=== PATIENT | male | born 1945 | race Caucasian/White ===

== ENCOUNTER 2021-03-24 14:06 | Inpatient (IN) | payer OTHER, BC ==
[2021-03-24] MEDS ORDERED: MAG HYDROX/AL HYDROX/SIMETH 30 ML UNIT-DOSE CUP PO ONE (14:31)
[2021-03-24] MEDS ORDERED: ASPIRIN 81 MG CHEWABLE TABLETS PO ONE (14:31)
[2021-03-24] MEDS ORDERED: FAMOTIDINE 20 MG/50 ML IVPB 20 MG/50 ML MG IVPB ONE ×2 (14:31→14:53)
[2021-03-24] MEDS ORDERED: NITROGLYCERIN SUBLINGUAL 1/150 0.4 MG TAB SL ONE (14:51)
[2021-03-24] MEDS ORDERED: ASPIRIN 81 MG CHEWABLE TABLETS ONE (14:52)
[2021-03-24] MEDS ORDERED: NITROGLYCERIN SUBLINGUAL 1/150 0.4 MG TAB ONE (14:53)
[2021-03-24] MEDS ORDERED: MAG HYDROX/AL HYDROX/SIMETH 30 ML UNIT-DOSE CUP ONE (14:55)
[2021-03-24 14:57] LABS: BASO % 0.7 % (0-2.0); EOS % 0.7 % (0-4.5); HEMATOCRIT 47.5 % (35.4-49); HEMOGLOBIN 16.3 GM/dL (11.7-16.9); LYMPH % 12.4 % (8-40); MCH 33.8 pg (25.7-33.7); MCHC 34.2 g/dl (32.0-35.9); MEAN CELL VOLUME 98.9 fl (80-96); MEAN PLT VOLUME 7.1 fl (7.5-11.1); NEUT % 79.2 % (42.8-82.8); PLATELET COUNT 213 10^3/uL (134-434); RDW 13.3 % (11.9-15.9); WHITE BLOOD COUNT 13.9 K/mm3 (4.0-10.0)
[2021-03-24 15:14] LABS: CHLORIDE 104 mmol/L (98-107); SODIUM 140 mmol/L (136-145)
[2021-03-24 15:17] LABS: ALBUMIN 4.1 g/dl (3.4-5.0); ANION GAP 10 MMOL/L (8-16); BLOOD UREA NITROGEN 9.8 mg/dL (7-18); CO2 27 mmol/L (21-32); GLUCOSE,RANDOM 119 mg/dL (74-106)
[2021-03-24 15:20] LABS: CREATININE 0.9 mg/dL (0.55-1.3); SGOT/AST 92 U/L (15-37); SGPT/ALT 56 U/L (13-61)
[2021-03-24 15:21] LABS: BILIRUBIN,TOTAL 2.4 mg/dL (0.2-1)
[2021-03-24 15:22] LABS: TOT PROT 7.1 g/dl (6.4-8.2)
[2021-03-24 15:23] LABS: ALK PHOS 119 U/L (45-117)
[2021-03-24] MEDS ORDERED: SODIUM CHLORIDE 1,000 ML IV SCH (17:15)
[2021-03-24] MEDS ORDERED: CEFTRIAXONE 2 GM-D5W BAG 2 GM/50 ML BAG IVPB ONE (17:26)
[2021-03-24] MEDS ORDERED: CEFTRIAXONE 2 GM/100 ML BAG IVPB ONE (17:35)
[2021-03-24 18:17] LABS: INR 1.14 (0.83-1.09)
[2021-03-24 18:20] LABS: ACTIVATED PTT 33.4 SECONDS (25.2-36.5)
[2021-03-24] MEDS ORDERED: MORPHINE SULFATE 2 MG/ML VIAL IVPUSH PRN (18:54)
[2021-03-24] MEDS ORDERED: LORazepam 1 MG TABLET PO PRN (20:05)
[2021-03-24] MEDS: SODIUM CHLORIDE 1,000 ML IV SCH (23:01)
[2021-03-25] MEDS ORDERED: PIPERACILLIN/TAZOB 3.375 GM 3.375 GM in DEXTROSE 5%-WATER - 50 ML IVPB SCH (02:00)
[2021-03-25] MEDS ORDERED: PIPERACILLIN/TAZOBACTAM 3.375 GM VIAL IVPB ONE (02:06)
[2021-03-25] MEDS ORDERED: DEXTROSE 5%-WATER - 50 ML IVPB ONE ×2 (02:07→07:36)
[2021-03-25 02:37] VITALS: BMI 24.5
[2021-03-25] MEDS ORDERED: CEFTRIAXONE 1 GM in DEXTROSE 5%-WATER - 50 ML IVPB ONE (07:30)
[2021-03-25] MEDS ORDERED: cefTRIAXone SODIUM 1 GM VIAL ONE (07:36)
[2021-03-25 08:15] LABS: HEMATOCRIT 40.7 % (35.4-49); HEMOGLOBIN 14.2 GM/dL (11.7-16.9); MCH 34.4 pg (25.7-33.7); MCHC 34.9 g/dl (32.0-35.9); MEAN CELL VOLUME 98.7 fl (80-96); MEAN PLT VOLUME 7.3 fl (7.5-11.1); PLATELET COUNT 167 10^3/uL (134-434); RBC 4.13 M/mm3 (4.00-5.60); RDW 13.3 % (11.9-15.9); WHITE BLOOD COUNT 9.1 K/mm3 (4.0-10.0)
[2021-03-25 08:36] LABS: CHLORIDE 108 mmol/L (98-107); SODIUM 141 mmol/L (136-145)
[2021-03-25 08:42] LABS: ALBUMIN 3.3 g/dl (3.4-5.0); ANION GAP 7 MMOL/L (8-16); BLOOD UREA NITROGEN 8.5 mg/dL (7-18); CALCIUM 8.5 mg/dL (8.5-10.1); CO2 26 mmol/L (21-32); GLUCOSE,RANDOM 91 mg/dL (74-106); MAGNESIUM 2.3 mg/dL (1.8-2.4)
[2021-03-25 08:45] LABS: SGOT/AST 186 U/L (15-37); SGPT/ALT 210 U/L (13-61)
[2021-03-25 08:46] LABS: PHOSPHOROUS 2.7 mg/dL (2.5-4.9)
[2021-03-25 08:47] LABS: BILIRUBIN,TOTAL 3.2 mg/dL (0.2-1); TOT PROT 5.7 g/dl (6.4-8.2)
[2021-03-25 08:48] LABS: ALK PHOS 125 U/L (45-117)
[2021-03-25] MEDS: CEFTRIAXONE 1 GM in DEXTROSE 5%-WATER - 50 ML IVPB SCH (09:16)
[2021-03-25] MEDS: metoPROLOL SUCCINATE 25 MG TAB.SR.24H (FP) PO SCH (09:43)
[2021-03-25] MEDS: SODIUM CHLORIDE 1,000 ML IV SCH ×2 (09:44→21:08)
[2021-03-25] MEDS ORDERED: LORazepam 1 MG TABLET PO PRN (13:57)
[2021-03-25] MEDS ORDERED: THIAMINE HCL 200 MG/2 ML VIAL IVPB ONE (13:58)
[2021-03-25] MEDS ORDERED: PHYTONADIONE 10 MG/1 ML AMP IVPB ONE (15:09)
[2021-03-26 08:26] LABS: BASO % 0.3 % (0-2.0); EOS % 1.3 % (0-4.5); HEMATOCRIT 43.4 % (35.4-49); HEMOGLOBIN 14.8 GM/dL (11.7-16.9); LYMPH % 8.8 % (8-40); MCH 33.8 pg (25.7-33.7); MCHC 34.1 g/dl (32.0-35.9); MEAN CELL VOLUME 99.4 fl (80-96); MONO % 9.1 % (3.8-10.2); NEUT % 80.5 % (42.8-82.8); PLATELET COUNT 160 10^3/uL (134-434); RBC 4.36 M/mm3 (4.00-5.60); RDW 13.4 % (11.9-15.9); WHITE BLOOD COUNT 6.5 K/mm3 (4.0-10.0)
[2021-03-26 08:32] LABS: INR 1.09 (0.83-1.09); PROTHROMBIN TIME (PATIENT) 13.4 SEC (9.7-13.0)
[2021-03-26 08:45] LABS: LIPASE 325 U/L (73-393)
[2021-03-26 08:46] LABS: AMYLASE 35 U/L (25-115)
[2021-03-26 08:48] LABS: ALBUMIN 3.4 g/dl (3.4-5.0); BLOOD UREA NITROGEN 10.7 mg/dL (7-18)
[2021-03-26 08:49] LABS: MAGNESIUM 2.2 mg/dL (1.8-2.4)
[2021-03-26] MEDS ORDERED: DEXTROSE 5%-WATER - 50 ML IVPB ONE (08:50)
[2021-03-26] MEDS ORDERED: cefTRIAXone SODIUM 1 GM VIAL ONE (08:50)
[2021-03-26 08:51] LABS: CREATININE 0.9 mg/dL (0.55-1.3); PHOSPHOROUS 2.7 mg/dL (2.5-4.9)
[2021-03-26] MEDS: CEFTRIAXONE 1 GM in DEXTROSE 5%-WATER - 50 ML IVPB SCH (09:00)
[2021-03-26] MEDS: metoPROLOL SUCCINATE 25 MG TAB.SR.24H (FP) PO SCH (09:01)
[2021-03-26] MEDS: SODIUM CHLORIDE 1,000 ML IV SCH (16:08)
[2021-03-27] MEDS: SODIUM CHLORIDE 1,000 ML IV SCH ×3 (05:21→19:39)
[2021-03-27 08:20] LABS: BASO % 0.3 % (0-2.0); HEMATOCRIT 45.3 % (35.4-49); HEMOGLOBIN 15.3 GM/dL (11.7-16.9); LYMPH % 15.1 % (8-40); MCH 33.9 pg (25.7-33.7); MCHC 33.7 g/dl (32.0-35.9); MEAN CELL VOLUME 100.6 fl (80-96); MEAN PLT VOLUME 7.4 fl (7.5-11.1); MONO % 9.9 % (3.8-10.2); NEUT % 73.7 % (42.8-82.8); PLATELET COUNT 195 10^3/uL (134-434); RBC 4.51 M/mm3 (4.00-5.60); RDW 13.4 % (11.9-15.9); WHITE BLOOD COUNT 9.3 K/mm3 (4.0-10.0)
[2021-03-27 08:43] LABS: CALCIUM 8.3 mg/dL (8.5-10.1)
[2021-03-27 08:44] LABS: ALBUMIN 3.6 g/dl (3.4-5.0); BLOOD UREA NITROGEN 7.4 mg/dL (7-18); MAGNESIUM 1.9 mg/dL (1.8-2.4)
[2021-03-27 08:47] LABS: CREATININE 0.9 mg/dL (0.55-1.3); PHOSPHOROUS 2.3 mg/dL (2.5-4.9)
[2021-03-27 08:48] LABS: BILIRUBIN,TOTAL 1.3 mg/dL (0.2-1); TOT PROT 6.5 g/dl (6.4-8.2)
[2021-03-27] MEDS ORDERED: CEFTRIAXONE 1 GM in DEXTROSE 5%-WATER - 50 ML IVPB SCH (10:00)
[2021-03-27] MEDS ORDERED: cefTRIAXone SODIUM 1 GM VIAL ONE (10:40)
[2021-03-27] MEDS ORDERED: DEXTROSE 5%-WATER - 50 ML IVPB ONE (10:40)
[2021-03-27] MEDS: metoPROLOL SUCCINATE 25 MG TAB.SR.24H (FP) PO SCH (10:43)
[2021-03-27] MEDS ORDERED: POTASSIUM CHLORIDE 20 MEQ PREMIX IVPB 100 ML IVPB ONE (11:30)
[2021-03-27] MEDS: KCL 10 MEQ IVPB 10 MEQ/100 ML INFUS.BAG IVPB SCH ×2 (12:01→13:27)
[2021-03-27 13:07] LABS: HEP B CORE AB, TOT Negative (Negative)
[2021-03-27] MEDS ORDERED: PROPOFOL 20 ML ONE (15:33)
[2021-03-27] MEDS ORDERED: ROCURONIUM BROMIDE 50 MG/5 ML SYRINGE ONE (15:33)
[2021-03-27] MEDS ORDERED: MIDAZOLAM HCL 2 MG/2 ML SINGLE DOSE VIAL ONE (15:33)
[2021-03-27] MEDS ORDERED: fentaNYL CITRATE 250 MCG/5 ML VIAL ONE ×2 (15:33→16:33)
[2021-03-27] MEDS ORDERED: oxyCODONE HCL 5 MG TABLET PO PRN (15:56)
[2021-03-27] MEDS ORDERED: ACETAMINOPHEN 325 MG TABLET (FP) PO PRN (15:56)
[2021-03-27] MEDS ORDERED: morphine SULFATE 4 MG/ML VIAL IVPB PRN (15:56)
[2021-03-27] MEDS ORDERED: HYDROmorphone HCl 2 MG/ML VIAL ONE (16:33)
[2021-03-27] MEDS ORDERED: DEXAMETHASONE SOD PHOSPHATE 4 MG/1 ML VIAL ONE (16:37)
[2021-03-27] MEDS ORDERED: METOPROLOL TARTRATE 5 MG/5 ML VIAL ONE (16:37)
[2021-03-27] MEDS ORDERED: GLYCOPYRROLATE 0.2 MG/1 ML VIAL ONE (16:47)
[2021-03-27] MEDS ORDERED: NEOSTIGMINE METHYLSULFATE 0.5 MG/ML - 10 ML MDV ONE (16:47)
[2021-03-27] MEDS ORDERED: ONDANSETRON 4 MG/2 ML VIAL IVPUSH PRN (17:34)
[2021-03-27] MEDS ORDERED: ALBUTEROL SO4 0.083% IH SOL 2.5 MG/3 ML VIAL.NEB. NEB ONE (17:40)
[2021-03-27] MEDS ORDERED: LACTATED RINGERS SOLUTION 1,000 ML IV SCH (17:45)
[2021-03-27] MEDS ORDERED: LORazepam 1 MG TABLET PO PRN (17:47)
[2021-03-27] MEDS ORDERED: NAPH,MB-DB/K PH,MBDB POWDER PACKET PO ONE (19:05)
[2021-03-28] MEDS: SODIUM CHLORIDE 1,000 ML IV SCH (06:24)
[2021-03-28 08:28] LABS: BASO % 0.1 % (0-2.0); EOS % 0.1 % (0-4.5); HEMATOCRIT 40.3 % (35.4-49); HEMOGLOBIN 13.4 GM/dL (11.7-16.9); LYMPH % 7.2 % (8-40); MCH 33.3 pg (25.7-33.7); MCHC 33.3 g/dl (32.0-35.9); MEAN CELL VOLUME 100.1 fl (80-96); MEAN PLT VOLUME 7.6 fl (7.5-11.1); MONO % 9.7 % (3.8-10.2); NEUT % 82.9 % (42.8-82.8); PLATELET COUNT 180 10^3/uL (134-434); RBC 4.03 M/mm3 (4.00-5.60); RDW 13.4 % (11.9-15.9); WHITE BLOOD COUNT 11.5 K/mm3 (4.0-10.0)
[2021-03-28 08:55] LABS: ALBUMIN 3.1 g/dl (3.4-5.0); BLOOD UREA NITROGEN 4.9 mg/dL (7-18); CALCIUM 8.4 mg/dL (8.5-10.1); MAGNESIUM 1.9 mg/dL (1.8-2.4)
[2021-03-28 08:56] LABS: PHOSPHOROUS 3.3 mg/dL (2.5-4.9)
[2021-03-28 08:58] LABS: CREATININE 0.7 mg/dL (0.55-1.3); TOT PROT 5.4 g/dl (6.4-8.2)
[2021-03-28] MEDS: ENOXAPARIN NA (PORCINE) 40 MG/0.4 ML DISP.SYRIN SQ SCH (09:47)
[2021-03-28] MEDS: PANTOPRAZOLE SODIUM 40 MG VIAL IVPUSH SCH (09:47)
[2021-03-28] MEDS: ASPIRIN COATED 81 MG TABLET.EC PO SCH (09:47)
[2021-03-28] MEDS: metoPROLOL SUCCINATE 25 MG TAB.SR.24H (FP) PO SCH (09:47)
[2021-03-28] MEDS ORDERED: CEFTRIAXONE 1 GM in DEXTROSE 5%-WATER - 50 ML IVPB SCH (10:00)
[2021-03-28] MEDS ORDERED: POTASSIUM CHLORIDE ORAL LIQUID 20 MEQ/15 ML PO ONE (11:45)
[2021-03-28] MEDS ORDERED: DOCUSATE SODIUM 100 MG CAPSULE (FP) PO PRN (23:45)
[2021-03-29] MEDS ORDERED: POLYETHYLENE GLYCOL (HEALTHYLAX) 3350 17 GM PACKET PO ONE (02:02)
[2021-03-29] MEDS: PANTOPRAZOLE SODIUM 40 MG VIAL IVPUSH SCH (09:16)
[2021-03-29] MEDS: metoPROLOL SUCCINATE 25 MG TAB.SR.24H (FP) PO SCH (09:16)
[2021-03-29] MEDS: ASPIRIN COATED 81 MG TABLET.EC PO SCH (09:16)
[2021-03-29] MEDS: ENOXAPARIN NA (PORCINE) 40 MG/0.4 ML DISP.SYRIN SQ SCH (09:16)
[2021-03-29 15:23] VITALS: BP 124/94; PULSE 86; TEMP 98.6
== END 2021-03-29 15:23 | disposition home or self-care (01) | DRG 418 ==
LOC: JER 14:06 → JERBED 14:48 → J8W 03-25 01:48
PROVIDERS: ATTEND Internal Medicine
PROC: 0FT44ZZ Resection of Gallbladder, Percutaneous Endoscopic Approach (ICD-10-PCS; principal; 2021-03-27 16:30)
DX: K80.00 Calculus of gallbladder with acute cholecystitis without obstruction (principal); F10.29 Alcohol dependence with unspecified alcohol-induced disorder; K21.9 Gastro-esophageal reflux disease without esophagitis; E78.5 Hyperlipidemia, unspecified; I48.91 Unspecified atrial fibrillation; Z79.01 Long term (current) use of anticoagulants; E87.6 Hypokalemia; I45.10 Unspecified right bundle-branch block; J44.9 Chronic obstructive pulmonary disease, unspecified
CPT/HCPCS: 36415; 71045-TC-FY; 74181-TC; 76705-TC; 76775-TC; 80053; 82150; 82272; 82550; 83540; 83550; 83690; 83735; 84100; 84132; 84484; 85025; 85027; 85610; 85730; 86140; 86704; 86706; 86707; 86708; 86709; 86803; 86850; 86900; 86901; 87340; 88304-TC; 93005; 93010; 94010; 94760; 97116-GP; 97161-GP; 99285-25; C9803; U0003; U0005

== ENCOUNTER 2023-07-04 05:38 | Emergency (ER) | payer OTHER, BC ==
[2023-07-04 05:43] VITALS: BP 144/91; PULSE 76; RESP 19; TEMP 97.4; BMI 25.7
[2023-07-04 07:45] LABS: BASO % 0.4 % (0-2.0); EOS % 1.4 % (0-4.5); HEMATOCRIT 48.8 % (35.4-49); HEMOGLOBIN 16.7 GM/dL (11.7-16.9); LYMPH % 14.7 % (8-40); MCH 32.9 pg (25.7-33.7); MCHC 34.3 g/dl (32.0-35.9); MEAN PLT VOLUME 7.3 fl (7.5-11.1); MONO % 5.1 % (3.8-10.2); NEUT % 78.4 % (42.8-82.8); PLATELET COUNT 263 10^3/uL (134-434); RBC 5.08 M/mm3 (4.00-5.60); RDW 13.6 % (11.9-15.9); WHITE BLOOD COUNT 9.7 K/mm3 (4.0-10.0)
[2023-07-04 08:02] LABS: POTASSIUM 4.4 mmol/L (3.5-5.1)
[2023-07-04 08:03] LABS: CALCIUM 9.1 mg/dL (8.5-10.1)
[2023-07-04 08:05] LABS: ALBUMIN 4.1 g/dl (3.4-5.0); BLOOD UREA NITROGEN 10.1 mg/dL (7-18)
[2023-07-04 08:08] LABS: CREATININE 0.9 mg/dL (0.55-1.3)
[2023-07-04 08:10] LABS: BILIRUBIN,TOTAL 1.3 mg/dL (0.2-1); TOT PROT 7.5 g/dl (6.4-8.2)
[2023-07-04 08:32] LABS: ACTIVATED PTT 49.9 SECONDS (25.2-36.5); INR 1.28 (0.83-1.09); PROTHROMBIN TIME (PATIENT) 14.8 SEC (9.7-13.0)
[2023-07-04 08:50] LABS: EPI CELLS 35 /uL (0-25.1); HYALINE CASTS 38 /uL (0-3.1); PH,URINE 5.5 (5.0-8.0); URINE APPEARANCE TURBID; URINE BILIRUBIN 1+ (NEGATIVE); URINE COLOR RED; URINE GLUCOSE (UA) NEGATIVE (NEGATIVE); URINE KETONE NEGATIVE (NEGATIVE); URINE LEUK ESTERASE 2+ (NEGATIVE); URINE NITRITE POSITIVE (NEGATIVE); URINE PROTEIN 2+ (NEGATIVE); URINE RBC 54903 /uL (0-23.9); URINE UROBILINOGEN 0.2 mg/dL (0.2-1.0); URINE WBC 234 /uL (0-25.8)
[2023-07-04] MEDS ORDERED: SULFAMETHOXAZOLE/TRIMETHOPRIM 800MG/160MG D.S. TABLET PO ONE (09:05)
[2023-07-04] MEDS ORDERED: SULFAMETHOXAZOLE/TRIMETHOPRIM 800MG/160MG D.S. TABLET ONE (09:07)
== END 2023-07-04 09:13 | disposition home or self-care (01) ==
LOC: JER 05:38
DX: R31.9 Hematuria, unspecified (principal)
CPT/HCPCS: 36415; 80053; 81003; 85025; 85610; 85730; 86850; 86900; 86901; 87086; 99283-25

== ENCOUNTER 2024-03-22 11:32 | Emergency (ER) | payer OTHER, BC ==
[2024-03-22 11:38] VITALS: BMI 26.0
[2024-03-22] MEDS ORDERED: ACETAMINOPHEN INJECTION 100 ML IVPB ONE ×2 (12:48→17:05)
[2024-03-22] MEDS ORDERED: MAG HYDROX/AL HYDROX/SIMETH 30 ML UNIT-DOSE CUP ONE (12:48)
[2024-03-22] MEDS ORDERED: FAMOTIDINE 20 MG/50 ML IVPB 20 MG/50 ML MG IVPB ONE (12:48)
[2024-03-22] MEDS: MAG HYDROX/AL HYDROX/SIMETH -MYLANTA- ORAL SUSPENSION PO ONE (13:07)
[2024-03-22] MEDS: SODIUM CHLORIDE 0.9% 500 ML INFUS.BAG IV ONE ×2 (13:08→16:22)
[2024-03-22] MEDS: ACETAMINOPHEN 1000 MG/100 ML BAG IVPB ONE ×2 (13:08→17:09)
[2024-03-22 13:12] LABS: BASO % 0.4 % (0-2.0); EOS % 0.3 % (0-4.5); HEMATOCRIT 42.5 % (35.4-49); HEMOGLOBIN 14.5 GM/dL (11.7-16.9); LYMPH % 8.8 % (8-40); MCH 32.7 pg (25.7-33.7); MEAN CELL VOLUME 96.2 fl (80-96); MEAN PLT VOLUME 6.9 fl (7.5-11.1); NEUT % 84.5 % (42.8-82.8); PLATELET COUNT 259 10^3/uL (134-434); RBC 4.42 M/mm3 (4.00-5.60); RDW 13.6 % (11.9-15.9); WHITE BLOOD COUNT 13.2 K/mm3 (4.0-10.0)
[2024-03-22 13:31] LABS: POTASSIUM 3.8 mmol/L (3.5-5.1)
[2024-03-22 13:33] LABS: ALBUMIN 3.8 g/dl (3.4-5.0); BLOOD UREA NITROGEN 9.7 mg/dL (7-18); CALCIUM 9.2 mg/dL (8.5-10.1); MAGNESIUM 2.1 mg/dL (1.8-2.4)
[2024-03-22 13:35] LABS: CREATININE 0.9 mg/dL (0.55-1.3)
[2024-03-22 13:37] LABS: BILIRUBIN,TOTAL 1.1 mg/dL (0.2-1); TOT PROT 6.4 g/dl (6.4-8.2)
[2024-03-22] MEDS: FAMOTIDINE 20 MG/50 ML IVPB 20 MG/50 ML MG IVPB ONE (14:09)
[2024-03-22] MEDS ORDERED: morphine SULFATE 4 MG/ML VIAL ONE (14:10)
[2024-03-22] MEDS: morphine CARPU-JECT 4 MG/1 ML DISP.SYRIN IVPUSH ONE (14:16)
[2024-03-22] MEDS ORDERED: SODIUM CHLORIDE 50 ML IVPB ONE ×5 (15:27→17:27)
[2024-03-22] MEDS: [UNRECOGNIZED DRUG - OTHER] IVPB ONE (15:30)
[2024-03-22] MEDS: FACTOR XA,INACTIVATED - BOLUS 400 MG/40 ML VIAL IVPB ONE ×3 (15:30→16:36)
[2024-03-22 15:35] LABS: BASO % 0.2 % (0-2.0); EOS % 0.1 % (0-4.5); HEMATOCRIT 35.2 % (35.4-49); HEMOGLOBIN 11.7 GM/dL (11.7-16.9); LYMPH % 7.6 % (8-40); MCH 32.5 pg (25.7-33.7); MCHC 33.4 g/dl (32.0-35.9); MEAN CELL VOLUME 97.4 fl (80-96); MEAN PLT VOLUME 7.1 fl (7.5-11.1); MONO % 4.8 % (3.8-10.2); NEUT % 87.3 % (42.8-82.8); PLATELET COUNT 246 10^3/uL (134-434); RBC 3.61 M/mm3 (4.00-5.60); RDW 13.8 % (11.9-15.9); WHITE BLOOD COUNT 15.5 K/mm3 (4.0-10.0)
[2024-03-22] MEDS ORDERED: FACTOR XA,INACTIVATED-ZHZO 480 MG/48 ML VIAL IVPB ONE (15:37)
[2024-03-22] MEDS ORDERED: [UNRECOGNIZED DRUG - OTHER] IVPB ONE (15:57)
[2024-03-22] MEDS: FACTOR XA,INACTIVATED-ZHZO 480 MG/48 ML VIAL IVPB ONE (16:22)
[2024-03-22] MEDS: SODIUM CHLORIDE 50 ML IVPB ONE (16:39)
[2024-03-22 16:57] VITALS: BP 102/64; PULSE 100; RESP 19; TEMP 96.7
== END 2024-03-22 17:15 | disposition short-term general hospital (02) ==
LOC: JER 11:32
PROC: 3E033GC Introduction of Other Therapeutic Substance into Peripheral Vein, Percutaneous Approach (ICD-10-PCS; principal; 2024-03-22)
PROC: 3E033GC Introduction of Other Therapeutic Substance into Peripheral Vein, Percutaneous Approach (ICD-10-PCS; 2024-03-22)
PROC: 3E033GC Introduction of Other Therapeutic Substance into Peripheral Vein, Percutaneous Approach (ICD-10-PCS; 2024-03-22)
PROC: 3E033GC Introduction of Other Therapeutic Substance into Peripheral Vein, Percutaneous Approach (ICD-10-PCS; 2024-03-22)
PROC: 3E033NZ Introduction of Analgesics, Hypnotics, Sedatives into Peripheral Vein, Percutaneous Approach (ICD-10-PCS; 2024-03-22)
PROC: 3E033NZ Introduction of Analgesics, Hypnotics, Sedatives into Peripheral Vein, Percutaneous Approach (ICD-10-PCS; 2024-03-22)
PROC: 3E033NZ Introduction of Analgesics, Hypnotics, Sedatives into Peripheral Vein, Percutaneous Approach (ICD-10-PCS; 2024-03-22)
DX: S36.039A Unspecified laceration of spleen, initial encounter (principal); S36.899A Unspecified injury of other intra-abdominal organs, initial encounter; R10.32 Left lower quadrant pain; R19.7 Diarrhea, unspecified; X58.XXXA Exposure to other specified factors, initial encounter
CPT/HCPCS: 36415; 36430; 71045-TC-FY; 74177-TC; 80053; 82962; 83605; 83690; 83735; 84484; 85025; 86850; 86900; 86901; 86922; 93005; 93010; 99285-25; J0131; J7169; P9058; Q9967